=== PATIENT | female | born 1950 | race Caucasian/White ===

== ENCOUNTER 2025-03-20 08:47 | Outpatient (CLI) | payer MEDICARE ==
--- NOTE | 2025-03-20 13:26 | RADIOLOGY REPORT ---
Procedure: MR MRI LOWER EXTREMITY LEFT 03/20/2025 09:40 AM INDICATION: UNILATERAL PRIMARY OSTEOARTHRITIS,LEFT KNEE,VALGUS DEFORMITY, NOT ELSEWHERE COMPARISON: None TECHNIQUE: MRI was performed utilizing multiple appropriate imaging planes and pulse sequences. FINDINGS: Medial meniscus: Unremarkable. Lateral meniscus: There is maceration of the body anterior horn. Anterior cruciate ligament: Unremarkable. Posterior cruciate ligament: Unremarkable. Medial collateral ligament: Unremarkable. Lateral stabilizers: Unremarkable. Extensor mechanism: Unremarkable. Pes anserine Tendons: Unremarkable. Lateral compartment: Full-thickness loss of articular cartilage on both sides joint noted. Moderate marginal osteophytosis. Medial compartment: Unremarkable. Patellofemoral compartment: Full-thickness loss of the patellar and trochlear articular cartilage wit h subchondral marrow edema marginal osteophytosis noted. Bones: Several subcentimeter round PD hyperintense T1 intermediate signal structures noted in the lat eral femoral condyle with cumulative measurement of 1.2 x 1 cm without surrounding bone marrow edema likely of the a benign etiology such as enchondroma or intraosseous cysts. Joint Effusion: Moderate-sized. Popliteal fossa: No Reynaga's cyst. Other: Thin suprapatellar synovial plica. IMPRESSION: 1. Severe lateral and patellofemoral compartments osteoarthritis with full-thickness loss of articula r cartilage and marginal osteophytosis. 2. Maceration of the body and anterior horn of the lateral meniscus. 3. Moderate-sized joint effusion. 4. Thin suprapatellar synovial plica.
== END 2025-03-20 23:59 | disposition home or self-care (01) ==
LOC: MRI 08:47
PROVIDERS: ATTEND Orthopaedic Surgery
DX: M17.12 Unilateral primary osteoarthritis, left knee (principal); M21.062 Valgus deformity, not elsewhere classified, left knee; M25.462 Effusion, left knee; M94.8X6 Other specified disorders of cartilage, lower leg
CPT/HCPCS: 73721